=== PATIENT | female | born 1975 | race Caucasian/White ===

== ENCOUNTER 2019-05-04 07:33 | Outpatient (CLI) | payer OTHER | END 2019-05-04 23:59 | disposition home or self-care (01) | LOC: CFH 07:33 | PROVIDERS: ATTEND Obstetrics & Gynecology Female Pelvic Medicine and Reconstructive Surgery | DX: N64.3 Galactorrhea not associated with childbirth (principal) | CPT/HCPCS: 76642; 77066; G0279 ==